=== PATIENT | male | born 1990 | race Two or more races ===

== ENCOUNTER 2018-05-18 13:26 | Emergency (ER) | payer OTHER ==
[~2018-05-18] VITALS: Ht 165.1 cm; Wt 71.2 kg
[~2018-05-18 13:26] MED LIST: DOLOGESIC CAPLE1 TAB PO
== END 2018-05-18 17:06 | disposition home or self-care (01) ==
LOC: ER 13:26
DX: L02.522 Furuncle left hand (principal)

== ENCOUNTER 2019-05-06 16:04 | Emergency (ER) | payer OTHER ==
[~2019-05-06] VITALS: Ht 165.1 cm; Wt 72.6 kg
== END 2019-05-06 17:55 | disposition home or self-care (01) ==
LOC: ER 16:04
DX: S61.226A Laceration with foreign body of right little finger without damage to nail, initial encounter (principal); W26.0XXA Contact with knife, initial encounter; Y93.89 Activity, other specified; Y92.89 Other specified places as the place of occurrence of the external cause; Y99.8 Other external cause status